=== PATIENT | male | born 1990 | race Caucasian/White ===

== ENCOUNTER → 2019-12-06 | Outpatient (CLI) | payer OTHER, BC ==
--- NOTE | 2019-12-06 18:40 | XR ---
EXAMINATION TYPE: XR cervical spine 5 views comp XR lumbar spine 5 views complete DATE OF EXAM: 12/06/2019 COMPARISON: None HISTORY: 29-year-old male low back pain and cervicalgia FINDINGS: Cervical spine: No odontoid view. No predental space widening or prevertebral soft tissue swelling. Facet arthropathy lower cervical spine. Limited assessment of the left C7-T1 neuroforamen due to the degree of obliqui ty. No significant bony neural foraminal narrowing at the other levels. Lumbar spine: Vertebral body heights are preserved and alignment is maintained. Mild facet arthropathy lower lumbar spine. No pars interarticularis defects seen. 5 lumbar type vertebral bodies. IMPRESSION: 1. Cervical spine: Mild facet arthropathy lower cervical spine. No prevertebral soft tissue swelling or malalignment. 2. Lumbar spine: Mild facet arthropathy lower lumbar spine. No vertebral compression collapse or raquel lignment.
== END | disposition home or self-care (01) ==
LOC: RADXRYALE 15:29
PROVIDERS: ATTEND Family Medicine
DX: M47.812 Spondylosis without myelopathy or radiculopathy, cervical region (principal); M47.816 Spondylosis without myelopathy or radiculopathy, lumbar region
CPT/HCPCS: 72050; 72110